=== PATIENT | female | born 1970 | race American Indian/Alaskan Native ===

== ENCOUNTER 2018-07-23 16:13 | Emergency (ER) | payer OTHER ==
--- NOTE | 2018-07-23 16:41 | Emergency Department Report ---
Chief Complaint: Abdominal Pain Stated Complaint: APPENDIX INFLAMATION Time Seen by Provider: 07/23/18 16:37 - HPI History of Present Illness: This is a 47 y.o. female that presents to the ER the presents with abdominal pain while on vacation 2 days ago. Reports pain as intermittent in RLQ pain. Reports pain intermittent for 1 year but worse over the past 2 days. Denies N/V/D LMP 07/03/18 A1 ectopic - Exam Vital Signs: Vital Signs 07/23/18 16:27 Temperature 97.8 F Pulse Rate 98 H Respiratory 16 Rate Blood Pressure 124/68 [Left] O2 Sat by Pulse 98 Oximetry MSE screening note: Focused history and physical exam performed. Due to findings the following was ordered: Labs ED Disposition for MSE Condition: Stable Instructions: Abdominal Pain (ED)
[2018-07-23 17:11] LABS: Basophils % (Auto) 0.6 % (0.0-1.8); Eosinophils # (Auto) 0.1 K/mm3 (0.0-0.4); Eosinophils % (Auto) 3.3 % (0.0-4.3); Hematocrit 37.7 % (30.3-42.9); Hemoglobin 12.4 gm/dl (10.1-14.3); Lymphocytes # (Auto) 1.2 K/mm3 (1.2-5.4); Lymphocytes % (Auto) 27.7 % (13.4-35.0); Mean Corpuscular HGB Conc 33 % (30-34); Mean Corpuscular Volume 90 fl (79-97); Monocytes # (Auto) 0.4 K/mm3 (0.0-0.8); Monocytes % (Auto) 9.8 % (0.0-7.3); Platelet Count 192 K/mm3 (140-440); Red Cell Distribution Width 14.7 % (13.2-15.2)
[2018-07-23 17:31] LABS: Bacteria,Urine 1+ /HPF (Negative); Bilirubin,Urine NEG (Negative); Blood,Urine NEG (Negative); Color,Urine Yellow (Yellow); Mucus,Urine 3+ /HPF; Protein,Urine <15 mg/dL mg/dL (Negative)
[2018-07-23 17:47] LABS: Alanine Aminotransferase 14 units/L (7-56); Albumin 4.3 g/dL (3.9-5); BUN/Creatinine Ratio 15; Blood Urea Nitrogen 12 mg/dL (7-17); Calcium 9.1 mg/dL (8.4-10.2); Hemolysis Index 63
--- NOTE | 2018-07-23 20:05 | Cat Scan Report ---
PROCEDURE: CT ABDOMEN PELVIS WO CON TECHNIQUE: Computerized axial tomography of the abdomen and pelvis was performed without intravenous contrast. This study is performed without intravascular contrast material and its sensitivity for ab dominal and pelvic pathology, including neoplasms, inflammation, abscess, free fluid, thrombosis, art erial dissection and infarction, is reduced compared with a contrast enhanced study. CT DOSE LENGTH PRODUCT: 578.7 mGycm HISTORY: RLQ tenderness COMPARISONS: None . FINDINGS: Visualized lower thorax: No significant abnormality. Liver: Normal size and attenuation. Spleen: Normal size and attenuation. Gallbladder and biliary system: Normal. Pancreas: Normal. Adrenals: Normal. Kidneys: Normal. GI tract: Normal . The appendix is normal. Lymph nodes and mesentery: Normal. Vasculature: Normal.. Bladder: Normal. Reproductive organs: The uterus is enlarged. There are multiple exophytic calcified fibroid extending off the uterus. The largest extends off the superior left fundus measuring 5.7 x 4.6 x 5.3 cm. A sec ond fibroid extends exophytically off the right side of the uterine fundus measuring 3.4 x 3.6 x 3.0 cm. A third measures 4.0 cm off the posterior mid uterus. Other smaller fibroids are also noted. Peritoneum: No free fluid. Musculoskeletal structures: No significant abnormality. Other: None. IMPRESSION: Enlarged lobulated uterus containing multiple underlying fibroids This document is electronically signed by Veronique Bergeron MD., Jul 23 2018 08:03:18 PM ET
--- NOTE | 2018-07-23 20:30 | Emergency Department Report ---
ED Abdominal Pain HPI - General Chief Complaint: Abdominal Pain Stated Complaint: APPENDIX INFLAMATION Time Seen by Provider: 07/23/18 16:37 Source: patient Mode of arrival: Ambulatory Limitations: No Limitations - History of Present Illness Initial Comments: Patient is 47 years old female with history of fibroids status post surgery. Patient presented to the ER complaining of lower abdominal pain on and off for the last 7 months, it gets worse in the last few days. Patient describes her pain as dull aching with no radiation. Patient denied any nausea or vomiting. No vaginal bleeding or vaginal discharge. No urinary symptoms. MD Complaint: abdominal pain Severity scale (0 -10): 4 - Related Data Allergies Allergy/AdvReac Type Severity Reaction Status Date / Time No Known Allergies Allergy Verified 07/23/18 16:39 ED Review of Systems ROS: Stated complaint: APPENDIX INFLAMATION Other details as noted in HPI Comment: All other systems reviewed and negative Constitutional: denies: chills, fever Respiratory: denies: cough, orthopnea, shortness of breath, SOB with exertion Gastrointestinal: abdominal pain. denies: nausea, vomiting, diarrhea, constipation, hematemesis, melena, hematochezia Musculoskeletal: denies: back pain Neurological: denies: headache, weakness ED Past Medical Hx - Past Medical History Previous Medical History?: Yes Additional medical history: HIGH CHOLESTROL - Surgical History Additional Surgical History: ECTOPIC PREG - Social History Smoking Status: Never Smoker Substance Use Type: None ED Physical Exam - General Limitations: No Limitations General appearance: alert, in no apparent distress - Head Head exam: Present: atraumatic, normocephalic, normal inspection - Eye Eye exam: Present: normal appearance - ENT ENT exam: Present: normal exam, normal orophraynx, mucous membranes moist - Neck Neck exam: Present: normal inspection, full ROM. Absent: tenderness, meningismus, lymphadenopathy, thyromegaly - Respiratory Respiratory exam: Present: normal lung sounds bilaterally - Cardiovascular Cardiovascular Exam: Present: regular rate, normal rhythm, normal heart sounds - GI/Abdominal GI/Abdominal exam: Present: soft, normal bowel sounds. Absent: distended, tenderness, guarding, rebound, rigid, organomegaly, mass, bruit, pulsatile mass - Extremities Exam Extremities exam: Present: normal inspection, full ROM, normal capillary refill. Absent: calf tenderness - Back Exam Back exam: Present: normal inspection, full ROM. Absent: CVA tenderness (R), CVA tenderness (L) - Neurological Exam Neurological exam: Present: alert, oriented X3, CN II-XII intact, normal gait, reflexes normal - Skin Skin exam: Present: warm, intact ED Course Vital Signs 07/23/18 07/23/18 07/23/18 16:27 19:34 20:00 Temperature 97.8 F 98.7 F Pulse Rate 98 H 56 L 54 L Respiratory 16 16 22 Rate Blood Pressure 111/63 Blood Pressure 124/68 114/61 [Left] O2 Sat by Pulse 98 100 97 Oximetry ED Medical Decision Making - Lab Data Result diagrams: 07/23/18 16:53 07/23/18 16:53 - Radiology Data Radiology results: report reviewed CT abdomen and pelvis showed multiple fibroids. No other acute intra-abdominal pathology. Critical care attestation.: If time is entered above; I have spent that time in minutes in the direct care of this critically ill patient, excluding procedure time. ED Disposition Clinical Impression: Abdominal pain, Uterine fibroid Disposition: - TO HOME OR SELFCARE Is pt being admited?: No Condition: Stable Instructions: Abdominal Pain (ED), Uterine Fibroids (ED) Referrals: PRIMARY CARE, [Referring] - 3-5 Days
[2018-07-23 21:12] VITALS: BP 112/65
== END 2018-07-23 21:11 | disposition home or self-care (01) ==
LOC: ED 16:13
DX: D64.9 Anemia, unspecified (principal); E78.00 Pure hypercholesterolemia, unspecified
CPT/HCPCS: 36415; 74176; 80053; 81001; 83690; 84703; 85025; 99284